=== PATIENT | female | born 1995 | race African-American/Black ===

== ENCOUNTER 2017-07-24 10:55 | Emergency (ER) | payer MEDICAID ==
[2017-07-24 11:49] LABS: BASOPHILS 0.2 % (0-2); EOSINOPHILS 4.8 % (0-7); HEMOGLOBIN 13.4 g/dL (12-16); IMMATURE GRANULOCYTES 0.3 % (0-5); LYMPHOCYTES 14.1 % (15-50); MCH 30.9 pg (26.0-34.0); MCHC 35.3 g/dL (31.0-37.0); MCV 87.8 fL (80.0-100.0); MONOCYTES 7.7 % (2-11); NEUTROPHILS 72.9 % (40-80); PLATELET COUNT 183 10x3/uL (130-400); RBC 4.33 10x6/uL (4.00-5.40); RDW 12.8 % (11.5-14.5); WBC 9.4 10x3/uL (4.8-10.8)
[2017-07-24 12:51] LABS: HCG URINE NEGATIVE (NEGATIVE)
[2017-07-24 12:57] LABS: UDS - AMPHET NEGATIVE QUAL (NEGATIVE); UDS - BARB NEGATIVE QUAL (NEGATIVE); UDS - BENZO NEGATIVE QUAL (NEGATIVE); UDS - COCAINE NEGATIVE QUAL (NEGATIVE); UDS - METH NEGATIVE QUAL (NEGATIVE); UDS - OPIATE NEGATIVE QUAL (NEGATIVE); UDS - PCP NEGATIVE QUAL (NEGATIVE); UDS - THC POSITIVE QUAL (NEGATIVE)
== END 2017-07-24 14:40 | disposition home or self-care (01) ==
LOC: D.ER 10:55
PROVIDERS: Emergency Medicine; Nurse Practitioner Family
DX: S16.1XXA Strain of muscle, fascia and tendon at neck level, initial encounter (principal); V43.62XA Car passenger injured in collision with other type car in traffic accident, initial encounter; Y93.89 Activity, other specified; Y92.410 Unspecified street and highway as the place of occurrence of the external cause; S29.012A Strain of muscle and tendon of back wall of thorax, initial encounter; S39.012A Strain of muscle, fascia and tendon of lower back, initial encounter; M62.838 Other muscle spasm

== ENCOUNTER 2019-07-27 16:05 | Emergency (ER) | payer SELFPAY ==
[~2019-07-27] VITALS: Ht 160 cm; Wt 63.6 kg
[2019-07-27 16:09] VITALS: Ht 160 cm; Wt 63.6 kg
[2019-07-27] MEDS ORDERED: HYDROCODONE-A1 UDTA2 PO (18:02)
[2019-07-27] MEDS ORDERED: CLEOCIN HCL300 MG PO (18:02)
[2019-07-27] MEDS ORDERED: KEFLEX500 MG PO (18:02)
[2019-07-27 18:29] VITALS: BP 112/68
== END 2019-07-27 18:31 | disposition home or self-care (01) ==
LOC: D.ER 16:05
DX: L05.91 Pilonidal cyst without abscess (principal)

== ENCOUNTER 2019-07-29 13:14 | Emergency (ER) | payer SELFPAY ==
[~2019-07-29] VITALS: Ht 160 cm; Wt 63.5 kg
[~2019-07-29 13:14] MED LIST: CLEOCIN HCL300 MG PO; HYDROCODONE-A1 UDTA2 PO; KEFLEX500 MG PO
[2019-07-29 13:23] VITALS: Ht 160 cm; Wt 63.5 kg
[2019-07-29 15:25] VITALS: BP 115/68
== END 2019-07-29 15:26 | disposition home or self-care (01) ==
LOC: D.ER 13:14
DX: L05.91 Pilonidal cyst without abscess (principal)